=== PATIENT | female | born 1945 | race Caucasian/White ===

== ENCOUNTER 2017-01-22 07:58 | Inpatient (IN) ==
[~2017-01-22 07:58] MED LIST: ACETAMINOPHEN 500 MG TABLET PO ONE; DEXAMETHASONE 4 MG/ML INJECTION IVP ONE; FAMOTIDINE PB 20 MG/50 ML BAG IV ONE; LIDOCAINE 1% (10mg/ml) 2mL INJ PF SDV ID ONE; METOCLOPRAMIDE 10mg/2ml INJECTION IVP ONE; NOZIN NASAL SWAB NAS ONE; ONDANSETRON 4 MG/2 ML INJECTION IVP ONE
[2017-01-22] MEDS ORDERED: EPINEPHrine PF 0.25 MG, BUPIVACAINE 0.25% PF 30 ML, MORPHINE SULFATE 15 MG, KETOROLAC I... OPSITE ONE (08:00)
--- OUTSIDE RECORDS SUMMARY | 2017-01-22 08:02 | External Medical Summary ---
:1945 Author Organization [employer] Care Team Providers Name Role Phone Elkin Marisela Provider Role Unavailable Allergies No Known Allergies Problems Problem Type Condition ICD-9 Code Onset Dates Condition Status Problem Coronary atherosclerosis of 414.01 Active ruby coronary artery Problem Heart valve replaced by other V43.3 Active means Problem Hypertension, benign 401.1 Active Problem Other and unspecified 272.4 Active hyperlipidemia Medications No Known Medications Vital Signs Date/Time: Nov 04, 2013 Height 65 inches Weight 146.12 lbs Temperature 98.8 F Blood Pressure Diastolic 88 mm Hg Blood Pressure Systolic 132 mm Hg Cardiac Monitoring Heart Rate 88 Beats per Minute BMI 24.31 Index Respiratory Rate 16 per Minute Results No Known Results Summary Purpose [employer] Submission
[2017-01-22] MEDS ORDERED: CEFAZOLIN 2 G in NS 100 ML IV SCH (08:30)
[2017-01-22] MEDS: LR 1,000 ML IV SCH ×2 (08:45→13:59)
[2017-01-22 08:54] VITALS: BMI 22.9
[2017-01-22] MEDS ORDERED: PROPOFOL 500 MG/50 ML VIAL IV ONE (10:36)
--- NOTE | 2017-01-22 10:53 | Anesthesia Preoperative Report ---
Anesthesia Preoperative Record - Date and Time Date: 01/22/17 Preoperative Diagnosis: Lt CASSIA M16.12 Proposed Procedure: cassia NPO Since Date: 01/22/17 NPO Since Time: 05:00 Allergies/Adverse Reactions: Allergies Allergy/AdvReac Type Severity Reaction Status Date / Time No Known Allergies Allergy Verified 01/07/17 07:57 - Vital Signs Vital Signs: Temperature 97.0 F 01/22/17 08:24 Pulse Rate 53 L 01/22/17 08:42 Respiratory Rate 14 01/22/17 08:24 Blood Pressure 130/81 01/22/17 08:24 Pulse Oximetry 98 01/22/17 08:24 Height and Weight: Height 1.64 m Weight 61.6 kg Body Mass Index 22.9 - Medications Inpatient Medications: Current Medications Lactated Ringer's (Lactated Ringers) 1,000 mls @ 50 mls/hr IV .Q20H GALLO Last Admin: 01/22/17 08:45 Dose: 50 mls/hr Epinephrine HCl 0.25 mg/Bupivacaine HCl 30 ml/Morphine Sulfate 15 mg/Ketorolac Tromethamine 60 mg/Sodium Chloride 65.25 mls @ 1 mls/hr OPSITE INTRAOP ONE PRN Reason: Protocol Stop: 01/25/17 01:14 Cefazolin Sodium 2 g/ Sodium (Chloride) 100 mls @ 200 mls/hr IV PREOP GALLO Sodium Chloride (Iv Flush) 10 - 80 ml IV PRN PRN PRN Reason: Flushing Tranexamic Acid (Cyklokapron) 1,000 mg TOP INTRAOP ONE Stop: 01/22/17 13:02 Home Medications: Home Medications Medication Instructions Recorded Confirmed Type Furosemide 40 mg PO DAILY #0 06/20/10 01/22/17 History Lisinopril 20 mg PO DAILY #0 06/20/10 01/22/17 History Spironolactone [Aldactone] 25 mg PO DAILY #0 06/20/10 01/22/17 History Lopressor (metoprolol tartrate) 50 50 mg PO BID tab 11/14/16 01/22/17 History mg tablet potassium gluconate 595 mg (99 mg) 198 mg PO DAILY tab 11/14/16 01/22/17 History tablet Tylenol PM diphenhydramine 25 1 tab PO HS tab 11/27/16 01/22/17 History mg-acetaminophen 500 mg tablet Zocor (simvastatin) 20 mg tablet 20 mg PO HS tab 11/27/16 01/22/17 History aloe vera 5,000 mg capsule 5,000 mg PO DAILY cap 11/27/16 01/22/17 History cholecalciferol (vitamin D3) 2,000 2,000 unit PO DAILY cap 11/27/16 01/22/17 History unit capsule dcrhgneuweii-Xg-odah-minerals 1 tab PO DAILY tab 11/27/16 01/22/17 History tablet Aspirin [Aspirin EC] 81 mg PO DAILY 12/07/16 01/21/17 History Isosorbide Mononitrate ER [Imdur] 60 mg PO DAILY 12/07/16 01/22/17 History Phelps-3 Fatty Acids/Fish Oil [Fish 1 each PO DAILY 12/07/16 01/22/17 History Oil 1,200 mg Softgel] Is Patient on Beta Van?: Yes - Medical History Respiratory: Reports: Pneumonia (2009) DENIES: Sleep Apnea Cardiovascular: Reports: Congestive Heart Failure (no recent exacerbations), Coronary Artery Disease (asymptomatic. follow up with web production manager negative), Hypertension, High Cholesterol, Valvular Heart Disease (AORTIC VALVE REPLACE; MITRAL VALVE REPAIRED) Neuro/Musculoskeletal: Reports: HX.MS.OSAR (LET HIP), Back Problems (5 disks, degen) Other History: Reports: Cancer (BCC LEFT EYELID) - Surgical History HEENT Surgeries: Reports: Other (LEFT EYELID CANCER REMOVED) Cardiac Surgeries/Treatments: Reports: Cardiac Catheterization, Coronary Artery Bypass Graft (SINGLE VESSEL, PORCINE VALVE REPL, VALVE REPAIR-2005), Valve Replacement GI Surgery/Treatments: Reports: Appendectomy Musculoskeletal Surgery/Tx: Reports: Other (left foot surgery) Reproductive Surgery/Treatment: Reports: Hysterectomy, Hysteroscopy Anesthesia Reactions: None Hx Family Anesthesia Reaction: No - Social History Smoking Status: Former smoker Hx Chewing Tobacco Use: No Second Hand Exposure: No Substance Use Type: does not use Alcohol Intake Frequency: does not drink - Pertinent Findings Laboratory: CBC and BMP 01/22/17 08:31 BMP 01/22/17 08:31 Sodium 143 Potassium 5.0 Chloride 99 Carbon Dioxide 30 BUN 20.0 H Creatinine 0.9 Glucose 99 Calcium 10.0 EKG: Sinus Bradycardia - Physical Exam Respiratory Exam: Present: lungs clear - Airway Assessment Mallampati Score: I TMD: 3 Fingerbreadths Neck Extension: good Teeth: upper dentures Overall Assessment: no airway concerns - ASA ASA Score: 3 - Plan Regional/Trunk Block: Spinal - Discussion Discussion: Discussed risks/options/alternatives of anesthesia and questions answered. Patient consents. Nursing pain assessment noted. Present for Discussion: family member Attestation Statement: Prior to the delivery of any anesthetic medication, I examined the patient, developed the plan, obtained the patient's consent and discussed the risk and benefits of the procedure with the patient/guardian. - Additional Information Seen by Anesthesia: Yes
[2017-01-22] MEDS ORDERED: VANCOMYCIN 1,000 MG INJECTION ONE (10:55)
[2017-01-22] MEDS ORDERED: MIDAZOLAM 2mg/2ml INJECTION ONE (11:33)
[2017-01-22] MEDS ORDERED: GLYCOPYRROLATE 0.4 MG/2 ML INJECTION ONE (11:43)
[2017-01-22] MEDS ORDERED: VANCOMYCIN 1,000 MG INJECTION IAR ONE (12:50)
--- NOTE | 2017-01-22 12:58 | Operative Note ---
- Procedure Preoperative Diagnosis: Left hip primary degenerative joint disease Postoperative Diagnosis: Same as preoperative diagnosis. Surgeon: Elle Hanna MD Gunsmith Apprentice: Christoph Vargas Complications: None. Anesthesia: Spinal. Estimated Blood Loss: See Anesthesia Record. Fluids: Please see Anesthesia Record. Description of Procedure: Mrs. Cole and her left hip were identified and marked in the preoperative holding area. She was brought back to the operating suite and spinal anesthetic was administered. She was then placed in a lateral decubitus position with her left hip up. The left lower extremity was prepped and draped in my normal sterile fashion. Timeout was performed. The [employer] robotic arm was used to assist with the surgery. A pelvic array was placed into the iliac crest through three small incisions. A direct superior approach was utilized. An approximately 10 cm incision was made in the skin and dissection carried down to the muscle fascia which was then split in line with skin incision. A checkpoint was placed in the greater trochanter. The short external rotators were identified and tagged and detached. A capsulotomy was performed and the hip dislocated. A femoral neck osteotomy was performed at the pre-templated level measuring down from the femoral head. The head was removed and acetabulum exposed. Labrum was removed. The acetabulum was then registered with the robot. The robotic arm was then used to ream with a 51 reamer. The robot then was again used to place a 52 Trident cup in 40 of tilt and 25 of anteversion. A liner was then placed. The proximal femur was exposed and prepared with a cookie cutter followed by reaming and broaching to a size 4. We trialed with a 0 head. This was good but a touch long. After thorough irrigation a final Accolade 2 size 4 stem with 127 neck was placed. Leg length and offset were checked with a -2.5 head with the robot and were good. A final minus 2.5L meter ceramic head was placed and the hip reduced. Betadine solution was used to irrigate throughout the case. It was followed by normal saline irrigation. Joint cocktail was injected throughout soft tissue. The capsulotomy was repaired with Ethibond. Short external rotators were also repaired with Ethibond. 1 g of vancomycin powder was placed into the wound. The muscle fascia was then repaired with #1 Vicryl. I then left my medical research assistant to close the subcutaneous tissue with 2-0 Vicryl followed by running 4-0 Monocryl skin followed by Dermabond and a sterile dressing. The patient with any placed back into supine position and taken to recovery room in the care of anesthesia.
[2017-01-22] MEDS ORDERED: TRANEXAMIC ACID 1,000mg/10ml INJECTION TOP ONE (13:01)
[2017-01-22] MEDS ORDERED: SALINE FLUSH 10ml SYRINGE IV PRN (13:01)
[2017-01-22] MEDS ORDERED: PROPOFOL 20 ML ONE (13:08)
--- NOTE | 2017-01-22 14:01 | XRay Report ---
Indication: postoperative image PROCEDURE: XR pelvis w/ 1 view LT hip: Encounter: Initial Comparison: November 14, 2016 Findings: Postoperative changes of left total hip replacement are seen. There is expected postoperative subcutaneous gas. No evidence of hardware failure or acute fracture. No retained radiopaque surgical instruments or sponges seen. Joint space narrowing in the contralateral right hip. Impression: New left total hip prosthesis without evidence of immediate complication. .
--- NOTE | 2017-01-22 14:15 | Anesthesia Postoperative Note ---
- Date and Time Date: 01/22/17 Time: 14:15 - Status Patient Participated in Evaluation: Patient Participated in Person Vital Signs: Temperature 97.3 F 01/22/17 13:55 Pulse Rate 71 01/22/17 14:05 Respiratory Rate 17 01/22/17 14:05 Blood Pressure 112/74 01/22/17 14:05 Pulse Oximetry 95 01/22/17 14:05 Respiratory Function: Airway Patent Cardiovascular Function: Regular Pulse EKG: Sinus Rhythm Mental Status: Alert and Oriented Pain Intensity: 0 Hydration: Taking PO Fluids Complications During Recover: None Apparent - Follow-Up Instructions Instructions: Per Surgeon
[2017-01-22] MEDS ORDERED: DiphenhydrAMINE 50 MG/ML INJECTION IVP PRN (14:18)
[2017-01-22] MEDS ORDERED: LORazepam 1 MG TABLET PO PRN (14:18)
[2017-01-22] MEDS ORDERED: DiphenhydrAMINE 25 MG CAPSULE PO PRN (14:18)
[2017-01-22] MEDS ORDERED: NOZIN NASAL SWAB NAS ONE (14:18)
[2017-01-22] MEDS ORDERED: ONDANSETRON 4 MG/2 ML INJECTION IVP PRN (14:18)
[2017-01-22] MEDS ORDERED: NAPROXEN 220 MG TABLET PO PRN (14:18)
[2017-01-22] MEDS ORDERED: TRAMADOL 50 MG TABLET PO PRN (14:18)
[2017-01-22] MEDS: NS 1,000 ML IV SCH (14:21)
[2017-01-22] MEDS: NOZIN NASAL SWAB NAS SCH ×2 (14:21→22:28)
[2017-01-22] MEDS: ACETAMINOPHEN 325 MG TABLET PO SCH ×2 (17:47→20:08)
[2017-01-22] MEDS: DEXAMETHASONE 20 MG/5 ML INJECTION IVP SCH (17:47)
[2017-01-22] MEDS: ASPIRIN *EC* 81 MG TABLET PO SCH (20:08)
[2017-01-22] MEDS: DOCUSATE SODIUM 100 MG CAPSULE PO SCH (20:08)
[2017-01-22] MEDS: CEFAZOLIN 2 G in NS 100 ML IV SCH (20:08)
[2017-01-22] MEDS ORDERED: SENNOSIDES 8.6 MG TABLET PO SCH (21:00)
[2017-01-22] MEDS ORDERED: SIMVASTATIN 20 MG TABLET PO SCH (21:00)
[2017-01-23] MEDS: CEFAZOLIN 2 G in NS 100 ML IV SCH (03:27)
[2017-01-23] MEDS: DEXAMETHASONE 20 MG/5 ML INJECTION IVP SCH (03:27)
[2017-01-23] MEDS: NS 1,000 ML IV SCH (04:54)
[2017-01-23] MEDS: NOZIN NASAL SWAB NAS SCH ×2 (05:00→13:11)
[2017-01-23] MEDS: ACETAMINOPHEN 325 MG TABLET PO SCH ×2 (08:34→13:11)
[2017-01-23] MEDS: ASPIRIN *EC* 81 MG TABLET PO SCH (08:34)
[2017-01-23] MEDS: DOCUSATE SODIUM 100 MG CAPSULE PO SCH (08:34)
--- NOTE | 2017-01-23 08:34 | Orthopedic Progress Note ---
Date: Subjective/Severity of Illness: Aga is doing well. Pain is a "0". She has been up with good tolerance. Having some trouble voiding. Labs look good. Bladder cath x 1 last night with 500cc present. No CP, cough or SOA. No GI complaints. Orthopedic Objective PO Vital signs: Temperature 97.5 F 01/23/17 04:00 Pulse Rate 70 01/23/17 04:00 Respiratory Rate 16 01/23/17 04:00 Blood Pressure 154/85 H 01/23/17 04:00 Pulse Oximetry 94 01/23/17 04:00 Height and Weight: Height 5 ft 4.5 in Weight 135 lb 12.876 oz Body Mass Index 22.9 - Constitutional General Appearance: Present: alert, cooperative, no acute distress - Respiratory Exam Present: non-labored - Extremities Exam Extremities: Absent: calf tenderness - Surgical Site Incision: Mepilex dressing intact, dressing intact, no drainage - Neurological Exam Present: no deficits - Psychiatric Exam Present: alert, normal affect - Labs Result Diagrams: 01/23/17 04:11 01/23/17 04:11 Abnormal lab results 01/22/17 01/23/17 01/23/17 Range/Units 08:31 04:11 04:11 Hgb 11.4 L (12-16) GM/DL Hct 34.2 L (36-46) % BUN 20.0 H 18.0 H (7-17) MG/DL Glucose 144 H (65-110) MG/DL H & H 01/23/17 Range/Units 04:11 Hgb 11.4 L (12-16) GM/DL Hct 34.2 L (36-46) % Orthopedic Assessment and Plan (1) Primary osteoarthritis of left hip Status: Acute Assessment and Plan: ASA protocol for VTE prophylaxis. SCD's. IVF bolus to promote urine output. Her BPs are a little high but she normally takes her morning meds by 6am. Will monitor after she gets her meds today. PT/OT services to improve independent function. Discharge Planning per Case Management. - Anticoagulation Therapy Anticoagulation: ASA 81 mg PO BID x6 weeks Hospital Course Summary Disclaimer: The visit summary below is not to be considered part of the above Progress Note.
[2017-01-23] MEDS ORDERED: POLYETHYL GLYCOL 3350 17gm PACKET PO SCH (09:00)
[2017-01-23] MEDS ORDERED: ISOSORBIDE MONONITRATE ER 60 MG TABLET PO SCH (09:00)
[2017-01-23] MEDS ORDERED: SPIRONOLACTONE 25 MG TABLET PO SCH (09:00)
[2017-01-23] MEDS ORDERED: OMEGA-3 ACID ESTERS 1 GM CAPSULE PO SCH (09:00)
[2017-01-23] MEDS ORDERED: FUROSEMIDE 40 MG TABLET PO SCH (09:00)
[2017-01-23] MEDS ORDERED: LISINOPRIL 20 MG TABLET PO SCH (09:00)
[2017-01-23 12:29] VITALS: BP 127/76; PULSE 70; RESP 18; TEMP 96.3; O2SAT 95
[2017-01-23] MEDS ORDERED: SENNOSIDES 8.6 MG TABLET PO PRN (13:21)
--- NOTE | 2017-01-23 14:18 | Discharge Summary ---
Orthopedic Discharge Info Date of admission: 01/22/17 07:58 Primary care physician: Rebecca Christianson APRN Attending Physician: Ren Hanna MD Consults: 01/22/17 08:15 Consult to Anesthesiology [CONS] Routine Reason For Exam: Preoperative Assessment 01/22/17 14:18 Case Management Consult [CONS] Routine Reason For Exam: Discharge Planning DME-Walker [CONS] Routine Height: 5 ft 4.5 in Weight: 135 lb 12.876 oz Total Joint Outpatient Therapy [CONS] Routine Comment: Remove dressing in 2 weeks - Discharge Diagnosis (1) Primary osteoarthritis of left hip Status: Acute - Procedures Procedures: Left CASSIA - Laboratory Result Diagrams: 01/23/17 04:11 01/23/17 04:11 Laboratory: Abnormal lab results 01/23/17 01/23/17 Range/Units 04:11 04:11 Hgb 11.4 L (12-16) GM/DL Hct 34.2 L (36-46) % BUN 18.0 H (7-17) MG/DL Glucose 144 H (65-110) MG/DL H & H 01/23/17 Range/Units 04:11 Hgb 11.4 L (12-16) GM/DL Hct 34.2 L (36-46) % Orthopedic Discharge HPI - HPI Comments This patient was admitted for elective surgical tx of end stage degenerative joint disease that failed to respond to conservative treatment. Further details of this is found in the admission H&P. Orthopedic Hospital Course Hospital course: 01/23/17 14:18 After appropriate preoperative clearance and signing of operative consent, the patient was given IV antibiotics, according to orthopedic protocol. The patient was taken to the operating room and underwent elective joint arthroplasty. Following surgery, antibiotics were discontinued less than 24 hours according to joint protocol. Appropriate anticoagulants were initiated and SCDs added for DVT prevention. The dressing was clean, dry, and intact. Pain control was obtained via multimodal approach. Bowel motivation addressed with scheduled and PRN medications. Early mobilization was initiated through PT services. Discharge arrangements made by a collaborative effort between the patient and Case Management. Follow-up is scheduled in 2-3 weeks. Discharge instructions given by orthopedic providers and nursing staff at discharge. Discharge condition was good. Ongoing care required?: No Discharge Plan - Med Rec/Dispo Referrals/Follow Up: Christoph Vargas PA [Physician Sign Out Clerk] - 02/13/17 10:30 am Narinder Instructions: [facility] [place] Ortho Postop Instructions Additional Instructions: [facility] ON 01/25/2017 AT 10:30AM FOR PHYSICAL THERAPY DIONTE. PHONE [phone] Prescriptions: New Acetaminophen [Tylenol] 650 mg PO QID tab Aspirin *EC* [Ecotrin] 81 mg PO BID tab PEG 3350 17gm PACKET [Miralax] 17 gm PO DAILY packet Tramadol [Ultram] 50 - 100 mg PO Q6H PRN #60 tab PRN Reason: Pain Continue Lisinopril 20 mg PO DAILY #0 Spironolactone [Aldactone] 25 mg PO DAILY #0 Furosemide 40 mg PO DAILY #0 Isosorbide Mononitrate ER [Imdur] 60 mg PO DAILY Byron-3 Fatty Acids/Fish Oil [Fish Oil 1,200 mg Softgel] 1 each PO DAILY potassium gluconate 595 mg (99 mg) tablet 198 mg PO DAILY tab cholecalciferol (vitamin D3) 2,000 unit capsule 2,000 unit PO DAILY cap Lopressor (metoprolol tartrate) 50 mg tablet 50 mg PO BID tab amijjkbwdeom-Uz-midg-minerals tablet 1 tab PO DAILY tab Tylenol PM diphenhydramine 25 mg-acetaminophen 500 mg tablet 1 tab PO HS tab Zocor (simvastatin) 20 mg tablet 20 mg PO HS tab Discontinued Aspirin [Aspirin EC] 81 mg PO DAILY Acetaminophen 650 mg PO DAILY #0 tab No Action aloe vera 5,000 mg capsule 5,000 mg PO DAILY cap - Dismissal Complete Discharge Instructions are:: Complete
[2017-01-24] MEDS ORDERED: BISACODYL 10 MG SUPPOSITORY RECTALLY SCH (20:00)
== END 2017-01-23 14:44 | disposition home or self-care (01) | DRG 470 ==
LOC: SRG 07:58
PROVIDERS: ADMIT Orthopaedic Surgery; ATTEND Orthopaedic Surgery